=== PATIENT | female | born 1940 | race Caucasian/White ===

== ENCOUNTER → 2017-02-17 | Outpatient (CLI) | payer MEDICARE, OTHER ==
--- NOTE | 2017-02-17 14:56 | CT ---
EXAMINATION TYPE: CT sinus wo con DATE OF EXAM: 02/17/2017 COMPARISON: NONE HISTORY: Patient complains of chronic heavy sinus drainage and headache. CT DLP: 607.[address] of the paranasal sinuses was performed in the axial and coronal planes. Bone and soft tissue settings are submitted. The paranasal sinuses demonstrate normal aeration and development. Mild mucosal thickening at the bases of the maxillary sinuses bilaterally. Minimal superior ethmoid a ir cell mucosal thickening. No air fluid levels identified The osteal meatal units are patent bilaterally. The nasal septum is midline. No bony destructive changes are seen within the field of view. Dental implant changes noted. IMPRESSION: Mild chronic sinusitis.
== END ==
LOC: RADCTMAIN 14:22
PROVIDERS: ATTEND Otolaryngology
DX: J32.9 Chronic sinusitis, unspecified (principal)
CPT/HCPCS: 70486; 87070

== ENCOUNTER → 2017-09-04 | Outpatient (CLI) | payer MEDICARE, OTHER ==
[2017-09-04 12:26] LABS: Basophils % (A) 0 %; Eosinophils # (A) 0.2 k/uL (0-0.7); Eosinophils % (A) 2 %; HCT 42.9 % (34.0-46.0); HGB 14.2 gm/dL (11.4-16.0); Lymphocytes # (A) 2.5 k/uL (1.0-4.8); Lymphocytes % (A) 37 %; MCH 31.5 pg (25.0-35.0); MCHC 33.1 g/dL (31.0-37.0); MCV 95.1 fL (80.0-100.0); Mean Platelet Volume 7.9; Monocytes # (A) 0.4 k/uL (0-1.0); Monocytes % (A) 5 %; Neutrophils # (A) 3.7 k/uL (1.3-7.7); Neutrophils % (A) 54 %; Platelet Count 147 k/uL (150-450); RBC 4.51 m/uL (3.80-5.40); RDW 13.7 % (11.5-15.5); WBC 6.9 k/uL (3.8-10.6)
[2017-09-04 12:44] LABS: Albumin 4.2 g/dL (3.5-5.0); Calcium 9.7 mg/dL (8.4-10.2); Potassium 4.3 mmol/L (3.5-5.1); Total Protein 6.5 g/dL (6.3-8.2)
== END | disposition home or self-care (01) ==
LOC: LABWHC1 11:57
PROVIDERS: ATTEND Family Medicine
DX: E78.2 Mixed hyperlipidemia (principal); I10 Essential (primary) hypertension; F33.0 Major depressive disorder, recurrent, mild
CPT/HCPCS: 36415; 80053; 80061; 82306; 84443; 85025

== ENCOUNTER → 2017-10-17 | Outpatient (CLI) | payer MEDICARE, OTHER ==
--- NOTE | 2017-10-19 20:46 | BD ---
EXAMINATION TYPE: Axial Bone Density DATE OF EXAM: 10/17/2017 COMPARISON: NONE CLINICAL HISTORY: Height: 5 FT 2 1/4 IN Weight: 118 FRAX RISK QUESTIONS: History of Fracture in Adulthood: YES Secondary Osteoporosis: 3. Menopause before 45: AGE 45 Rheumatoid Arthritis: YES Current Tobacco Use: YES RISK FACTORS HISTORY OF: Surgery to Spine/Hip(right/left)/Wrist (right/left): LT WRIST When: FOUR YEARS AGO Family History of Osteoporosis: YES Active: YES Postmenopausal woman: AGE 45 Lost more than 2 inches in height since high school: YES MEDICATIONS: Additional Medications: LOSARTAN, DILTIAZEM, FOLIC ACID, ATORVASTATIN,CALCIUM Additional History: EXAM MEASUREMENTS: Bone mineral densitometry was performed using the [employer] System. Bone mineral density as measured about the Lumbar spine is: ----- L1-L4(G/cm2): 0.959 T Score Values are as follows: ----- L2: -1.2 ----- L3: -1.9 ----- L4: -2.0 ----- L1-L4: -1.8 BASELINE Bone mineral density about the R hip (g/cm2): 0.810 Bone mineral density about the L hip (g/cm2): 0.794 T Score values are as follows: -----R Neck: -1.6 -----L Neck: -1.8 -----R Total: -1.1 -----L Total: -1.3 BASELINE IMPRESSION: Osteopenia (T Score between -2.5 and -1) overall in low back and both hips.. There is slightly increased risk of fracture and the patient may be considered for treatment. Re-Screen 2-5 years. NOTE: T-SCORE=SD OF THE YOUNG ADULT MEAN.
--- NOTE | 2017-10-20 11:55 | MM ---
Reason for exam: screening (asymptomatic). Last mammogram was performed 3 years and 1 month ago. History: Patient is postmenopausal. Benign excisional biopsy of the left breast, 1960. Physical Findings: A clinical breast exam by your physician is recommended on an annual basis and results should be correlated with mammographic findings. MG 3D Screening Mammo W/Cad Bilateral CC and MLO view(s) were taken. Prior study comparison: September 05, 2014, mammogram. The breast tissue is heterogeneously dense. This may lower the sensitivity of mammography. Stable benign calcifications. There is no discrete abnormality. No significant changes when compared with prior studies. ASSESSMENT: Benign, BI-RAD 2 RECOMMENDATION: Routine screening mammogram of both breasts in 1 year.
== END | disposition home or self-care (01) ==
LOC: RADMAMWWP 13:44
PROVIDERS: ATTEND Family Medicine
DX: Z12.31 Encounter for screening mammogram for malignant neoplasm of breast (principal); Z13.820 Encounter for screening for osteoporosis; M85.852 Other specified disorders of bone density and structure, left thigh; M85.851 Other specified disorders of bone density and structure, right thigh; M85.88 Other specified disorders of bone density and structure, other site
CPT/HCPCS: 77063; 77067; 77080

== ENCOUNTER → 2017-11-26 | Outpatient (CLI) | payer MEDICARE, OTHER ==
[2017-11-26 15:32] LABS: Anion Gap 11 mmol/L; Blood Urea Nitrogen 14 mg/dL (7-17); Calcium 9.5 mg/dL (8.4-10.2); Carbon Dioxide 25 mmol/L (22-30); Chloride 103 mmol/L (98-107); Glucose 110 mg/dL (74-99); Potassium 4.2 mmol/L (3.5-5.1); Sodium 139 mmol/L (137-145)
== END | disposition home or self-care (01) ==
LOC: LABWHC1 14:19
PROVIDERS: ATTEND Family Medicine
DX: E78.5 Hyperlipidemia, unspecified (principal); E55.9 Vitamin D deficiency, unspecified; I10 Essential (primary) hypertension; M85.80 Other specified disorders of bone density and structure, unspecified site; Z79.899 Other long term (current) drug therapy
CPT/HCPCS: 36415; 80048; 82306

== ENCOUNTER 2018-07-17 17:12 | Emergency (ER) | payer MEDICARE, OTHER ==
[2018-07-17 17:20] VITALS: TEMP 97.6
[2018-07-17] MEDS ORDERED: SODIUM CHLORIDE 0.9% 1,000 ML IV STA (17:21)
--- NOTE | 2018-07-17 17:27 | ED ---
Dizziness HPI - General Chief Complaint: Dizziness Stated Complaint: Dizziness Time Seen by Provider: 07/17/18 17:21 Source: patient, RN notes reviewed, old records reviewed Mode of arrival: wheelchair Limitations: no limitations - History of Present Illness Initial Comments: This is a 78-year-old female the ER for evaluation. Patient does say for evaluation a feeling cold be dizziness. Patient had a dizzy episode on the bank prior to arrival. Symptoms did resolve spontaneously patient was able to drive home, patient's daughter then picked patient's mother brought the ER for evaluation. She has had multiple episodes of dizziness in the last year off similar events with the room spinning. Patient has history of chronic sinusitis and chronic ear infections. No known prior history of stroke. Patient does have high cholesterol high blood pressure. Denies current headache and symptoms are currently resolved MD Complaint: dizziness -: hour(s) Timing: gradual onset, now resolved Description: "room spinning", off-balance History of Same: Yes History of Trauma: No Severity: mild Improves With: remaining still Worsens With: movement Associated Symptoms: denies other symptoms - Related Data Home Medications Medication Instructions Recorded Confirmed Aspirin 81 mg PO DAILY 04/25/15 07/17/18 Atorvastatin Calcium [Lipitor] 10 mg PO HS 04/25/15 07/17/18 Calcium Carbonate [Calcium] 400 mg PO HS 04/25/15 07/17/18 Cholecalciferol [Vitamin D3] 1,000 unit PO HS 04/25/15 07/17/18 Cyanocobalamin [Vitamin B-12] 1,000 mg PO DAILY 04/25/15 07/17/18 Diltiazem Oral [Cardizem Oral] 120 mg PO HS 04/25/15 07/17/18 Folic Acid 1 mg PO DAILY 04/25/15 07/17/18 Losartan Potassium [Cozaar] 50 mg PO DAILY 04/25/15 07/17/18 Multivit-Min/FA/Lycopen/Lutein 1 tab PO DAILY 04/25/15 07/17/18 [Centrum Silver Tablet] Bifidobacterium Infantis [Align] 4 mg PO DAILY 02/12/16 07/17/18 Ubidecarenone [Co Q-10] 100 mg PO DAILY 02/12/16 07/17/18 Krill Oil 500 mg PO DAILY 03/01/19 03/01/19 Allergies Allergy/AdvReac Type Severity Reaction Status Date / Time codeine Allergy Nausea & Verified 07/17/18 18:47 Vomiting oxytocin [From Pitocin] Allergy Hallucinati Verified 07/17/18 18:47 ons pineapple Allergy Anaphylaxis Verified 07/17/18 18:47 scopolamine Allergy Nausea & Verified 07/17/18 18:47 Vomiting venom-honey bee Allergy Rash/Hives Verified 07/17/18 18:47 [bee venom (honey bee)] Review of Systems ROS Statement: Those systems with pertinent positive or pertinent negative responses have been documented in the HPI. ROS Other: All systems not noted in ROS Statement are negative. Past Medical History Past Medical History: Coronary Artery Disease (CAD), Eye Disorder, Hyperlipidemia, Hypertension, Osteoarthritis (OA), Skin Disorder Additional Past Medical History / Comment(s): hx migraines, irregular heartbeat , hx ulcer, diverticulosis, gets hives on pressure spots all over body, herniated disk History of Any Multi-Drug Resistant Organisms: None Reported Past Surgical History: Breast Surgery, Cholecystectomy, Orthopedic Surgery, Tubal Ligation Additional Past Surgical History / Comment(s): left breast biopsy, left cataract , left wrist surgery, D&C's, Past Anesthesia/Blood Transfusion Reactions: Previous Problems w/ Anesthesia Additional Past Anesthesia/Blood Transfusion Reaction / Comment(s): "one time couldn't wake up" -dioes not take much anesthesia Past Psychological History: No Psychological Hx Reported Smoking Status: Current every day smoker Past Alcohol Use History: Rare Past Drug Use History: None Reported - Past Family History Mother Family Medical History: No Reported History General Exam Limitations: no limitations General appearance: alert, in no apparent distress Head exam: Present: atraumatic, normocephalic, normal inspection Eye exam: Present: normal appearance, PERRL, EOMI. Absent: scleral icterus, conjunctival injection, nystagmus, periorbital swelling ENT exam: Present: normal exam, mucous membranes moist Neck exam: Present: normal inspection. Absent: tenderness, meningismus, lymphadenopathy Respiratory exam: Present: normal lung sounds bilaterally. Absent: respiratory distress, wheezes, rales, rhonchi, stridor Cardiovascular Exam: Present: regular rate, normal rhythm, normal heart sounds. Absent: systolic murmur, diastolic murmur, rubs, gallop, clicks GI/Abdominal exam: Present: soft, normal bowel sounds. Absent: distended, tenderness, guarding, rebound, rigid Extremities exam: Present: normal inspection, full ROM, normal capillary refill. Absent: tenderness, pedal edema, joint swelling, calf tenderness Back exam: Present: normal inspection Neurological exam: Present: alert, oriented X3, CN II-XII intact Psychiatric exam: Present: normal affect, normal mood Skin exam: Present: warm, dry, intact, normal color. Absent: rash Course Vital Signs 07/17/18 17:13 Temperature 97.6 F Pulse Rate 77 Respiratory 18 Rate Blood Pressure 148/82 O2 Sat by Pulse 97 Oximetry - Reevaluation(s) Reevaluation #1: 07/17/18 19:15 Medical record reviewed Reevaluation #2: 07/17/18 19:15 Patient is relatively asymptomatic currently. Discussion at length regarding CVA versus TIA versus in her ear cause. Peripheral. Patient will follow-up with primary care doctor. Medical Decision Making - Medical Decision Making 78 female the ER for evaluation of vertiginous symptoms, no signs No evidence of central cause, patient is symptom-free currently not ataxic and able to ambulate. Patient can be discharged - Lab Data Result diagrams: 07/17/18 17:40 07/17/18 17:40 Lab Results 07/17/18 07/17/18 07/17/18 Range/Units 17:40 17:40 17:40 WBC 7.1 (3.8-10.6) k/uL RBC 4.23 (3.80-5.40) m/uL Hgb 13.8 (11.4-16.0) gm/dL Hct 41.1 (34.0-46.0) % MCV 97.1 (80.0-100.0) fL MCH 32.5 (25.0-35.0) pg MCHC 33.5 (31.0-37.0) g/dL RDW 13.9 (11.5-15.5) % Plt Count 145 L (150-450) k/uL Neutrophils % 61 % Lymphocytes % 29 % Monocytes % 5 % Eosinophils % 2 % Basophils % 0 % Neutrophils # 4.4 (1.3-7.7) k/uL Lymphocytes # 2.1 (1.0-4.8) k/uL Monocytes # 0.4 (0-1.0) k/uL Eosinophils # 0.1 (0-0.7) k/uL Basophils # 0.0 (0-0.2) k/uL PT 9.5 (9.0-12.0) sec INR 0.9 (<1.2) APTT 24.3 (22.0-30.0) sec Sodium 138 (137-145) mmol/L Potassium 4.5 (3.5-5.1) mmol/L Chloride 105 (98-107) mmol/L Carbon Dioxide 26 (22-30) mmol/L Anion Gap 7 mmol/L BUN 15 (7-17) mg/dL Creatinine 0.79 (0.52-1.04) mg/dL Est GFR (CKD-EPI)AfAm 84 (>60 ml/min/1.73 sqM) Est GFR (CKD-EPI)NonAf 73 (>60 ml/min/1.73 sqM) Glucose 86 (74-99) mg/dL Calcium 9.8 (8.4-10.2) mg/dL Phosphorus 3.5 (2.5-4.5) mg/dL Magnesium 2.1 (1.6-2.3) mg/dL Total Bilirubin 0.7 (0.2-1.3) mg/dL AST 41 H (14-36) U/L ALT 36 (9-52) U/L Alkaline Phosphatase 90 (38-126) U/L Troponin I (0.000-0.034) ng/mL Total Protein 6.8 (6.3-8.2) g/dL Albumin 4.2 (3.5-5.0) g/dL TSH 1.400 (0.465-4.680) mIU/L Urine Color Urine Appearance (Clear) Urine pH (5.0-8.0) Ur Specific Herrin (1.001-1.035) Urine Protein (Negative) Urine Glucose (UA) (Negative) Urine Ketones (Negative) Urine Blood (Negative) Urine Nitrite (Negative) Urine Bilirubin (Negative) Urine Urobilinogen (<2.0) mg/dL Ur Leukocyte Esterase (Negative) Urine RBC (0-5) /hpf Urine WBC (0-5) /hpf Amorphous Sediment (None) /hpf 07/17/18 07/17/18 Range/Units 17:40 17:40 WBC (3.8-10.6) k/uL RBC (3.80-5.40) m/uL Hgb (11.4-16.0) gm/dL Hct (34.0-46.0) % MCV (80.0-100.0) fL MCH (25.0-35.0) pg MCHC (31.0-37.0) g/dL RDW (11.5-15.5) % Plt Count (150-450) k/uL Neutrophils % % Lymphocytes % % Monocytes % % Eosinophils % % Basophils % % Neutrophils # (1.3-7.7) k/uL Lymphocytes # (1.0-4.8) k/uL Monocytes # (0-1.0) k/uL Eosinophils # (0-0.7) k/uL Basophils # (0-0.2) k/uL PT (9.0-12.0) sec INR (<1.2) APTT (22.0-30.0) sec Sodium (137-145) mmol/L Potassium (3.5-5.1) mmol/L Chloride (98-107) mmol/L Carbon Dioxide (22-30) mmol/L Anion Gap mmol/L BUN (7-17) mg/dL Creatinine (0.52-1.04) mg/dL Est GFR (CKD-EPI)AfAm (>60 ml/min/1.73 sqM) Est GFR (CKD-EPI)NonAf (>60 ml/min/1.73 sqM) Glucose (74-99) mg/dL Calcium (8.4-10.2) mg/dL Phosphorus (2.5-4.5) mg/dL Magnesium (1.6-2.3) mg/dL Total Bilirubin (0.2-1.3) mg/dL AST (14-36) U/L ALT (9-52) U/L Alkaline Phosphatase (38-126) U/L Troponin I <0.012 (0.000-0.034) ng/mL Total Protein (6.3-8.2) g/dL Albumin (3.5-5.0) g/dL TSH (0.465-4.680) mIU/L Urine Color Colorless Urine Appearance Clear (Clear) Urine pH 7.0 (5.0-8.0) Ur Specific Herrin 1.002 (1.001-1.035) Urine Protein Negative (Negative) Urine Glucose (UA) Negative (Negative) Urine Ketones Negative (Negative) Urine Blood Negative (Negative) Urine Nitrite Negative (Negative) Urine Bilirubin Negative (Negative) Urine Urobilinogen <2.0 (<2.0) mg/dL Ur Leukocyte Esterase Trace H (Negative) Urine RBC <1 (0-5) /hpf Urine WBC 5 (0-5) /hpf Amorphous Sediment Rare H (None) /hpf - Radiology Data Radiology results: report reviewed (CT brain is negative for acute disease), image reviewed Disposition Clinical Impression: Benign paroxysmal positional vertigo Disposition: HOME SELF-CARE Condition: Good Instructions (If sedation given, give patient instructions): Vertigo (ED), Benign Paroxysmal Positional Vertigo (ED) Is patient prescribed a controlled substance at d/c from ED?: No Referrals: Armando Holman MD [Primary Care Provider] - 1-2 days
--- NOTE | 2018-07-17 18:24 | CT ---
EXAMINATION TYPE: CT brain wo con DATE OF EXAM: 07/17/2018 COMPARISON: None HISTORY: Episodes of dizziness x [address] DLP: 1095.4 mGycm Automated exposure control for dose reduction was used. FINDINGS: There is cerebral cortical atrophy. There is no mass effect nor midline shift. There is no sign of in tracranial hemorrhage. There is hypodensity in the cortex left cerebral hemisphere consistent with ol d cortical infarct. Calvarium is intact. 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 CEREBRAL ATROPHY. NO ACUTE INTRACRANIAL ABNORMALITY .
[2018-07-17 18:37] LABS: Amorphous Sediment,Urine Rare /hpf; Appearance,Urine Clear (Clear); Bilirubin,Urine Negative (Negative); Blood,Urine Negative (Negative); Color,Urine Colorless; Glucose,Urine (UA) Negative (Negative); Ketones,Urine Negative (Negative); Leukocyte Esterase,Urine Trace (Negative); Nitrite,Urine Negative (Negative); Protein,Urine Negative (Negative); RBC,Urine <1 /hpf (0-5); Specific Gravity,Urine 1.002 (1.001-1.035); Urobilinogen,Urine <2.0 mg/dL (<2.0); WBC,Urine 5 /hpf (0-5)
[2018-07-17 18:42] LABS: Albumin 4.2 g/dL (3.5-5.0); Calcium 9.8 mg/dL (8.4-10.2); Magnesium 2.1 mg/dL (1.6-2.3); Phosphorus 3.5 mg/dL (2.5-4.5); Potassium 4.5 mmol/L (3.5-5.1); Total Bilirubin 0.7 mg/dL (0.2-1.3); Total Protein 6.8 g/dL (6.3-8.2)
[2018-07-17 18:43] LABS: Basophils % (A) 0 %; Eosinophils # (A) 0.1 k/uL (0-0.7); Eosinophils % (A) 2 %; HCT 41.1 % (34.0-46.0); HGB 13.8 gm/dL (11.4-16.0); Lymphocytes # (A) 2.1 k/uL (1.0-4.8); Lymphocytes % (A) 29 %; MCH 32.5 pg (25.0-35.0); MCHC 33.5 g/dL (31.0-37.0); MCV 97.1 fL (80.0-100.0); Mean Platelet Volume 8.2; Monocytes # (A) 0.4 k/uL (0-1.0); Monocytes % (A) 5 %; Neutrophils # (A) 4.4 k/uL (1.3-7.7); Neutrophils % (A) 61 %; Platelet Count 145 k/uL (150-450); RBC 4.23 m/uL (3.80-5.40); RDW 13.9 % (11.5-15.5); WBC 7.1 k/uL (3.8-10.6)
[2018-07-17 18:48] LABS: INR 0.9 (<1.2); Partial Thromboplastin Time 24.3 sec (22.0-30.0); Prothrombin Time 9.5 sec (9.0-12.0)
[2018-07-17 20:19] VITALS: BP 129/66; PULSE 66; RESP 19
== END 2018-07-17 20:12 | disposition home or self-care (01) ==
LOC: EC 17:12
DX: H81.10 Benign paroxysmal vertigo, unspecified ear (principal); E78.00 Pure hypercholesterolemia, unspecified; E78.5 Hyperlipidemia, unspecified; I25.10 Atherosclerotic heart disease of native coronary artery without angina pectoris; I10 Essential (primary) hypertension; M19.90 Unspecified osteoarthritis, unspecified site; F17.200 Nicotine dependence, unspecified, uncomplicated; Z88.5 Allergy status to narcotic agent; Z88.8 Allergy status to other drugs, medicaments and biological substances; Z91.018 Allergy to other foods; Z91.030 Bee allergy status; Z79.82 Long term (current) use of aspirin; Z79.899 Other long term (current) drug therapy; Z86.79 Personal history of other diseases of the circulatory system; Z87.19 Personal history of other diseases of the digestive system; Z86.69 Personal history of other diseases of the nervous system and sense organs
CPT/HCPCS: 36415; 70450; 80053; 81001; 83735; 84100; 84443; 84484; 85025; 85610; 85730; 87086; 93005; 96360; 96361; 99285

== ENCOUNTER → 2018-09-12 | Outpatient (CLI) | payer MEDICARE, OTHER ==
[2018-09-12 17:03] LABS: Albumin 4.5 g/dL (3.80-4.90); Albumin/Globulin Ratio 2.25 (1.60-3.17); Anion Gap 6.7 mmol/L (4.00-12.00); Calcium 9.7 mg/dL (8.7-10.3); Carbon Dioxide 28.3 mmol/L (21.6-31.8); Potassium 4.4 mmol/L (3.5-5.5); Total Protein 6.5 g/dL (6.2-8.2)
== END | disposition home or self-care (01) ==
LOC: LABWHC1 09:15
PROVIDERS: ATTEND Family Medicine
DX: E78.5 Hyperlipidemia, unspecified (principal); I10 Essential (primary) hypertension
CPT/HCPCS: 36415; 80053; 80061

== ENCOUNTER → 2018-11-16 | Outpatient (CLI) | payer MEDICARE, OTHER ==
--- NOTE | 2018-11-16 19:01 | US ---
EXAMINATION TYPE: US carotid duplex BILAT DATE OF EXAM: 11/16/2018 COMPARISON: NONE CLINICAL HISTORY: R55 SYNCOPA. dizziness, no HTN, no hx of TIA EXAM MEASUREMENTS: RIGHT: Peak Systolic Velocity (PSV) cm/sec ----- Right CCA: 51.0 ----- Right ICA: 93.2 ----- Right ECA: 73.4 ICA/CCA ratio: 1.8 RIGHT: End Diastole cm/sec ----- Right CCA: 13.3 ----- Right ICA: 29.3 ----- Right ECA: 9.5 LEFT: Peak Systolic Velocity (PSV) cm/sec ----- Left CCA: 55.5 ----- Left ICA: 64.3 ----- Left ECA: 64.3 ICA/CCA ratio: 1.2 LEFT: End Diastole cm/sec ----- Left CCA: 18.9 ----- Left ICA: 25.0 ----- Left ECA: 7.5 VERTEBRALS (direction of flow): Right Vertebral: Antegrade Left Vertebral: Antegrade Rhythm: Normal No elevated velocities or significant stenosis. No wall thickening. Plaque seen in bilateral bulbs. IMPRESSION: 1. Atherosclerotic plaque with no significant hemodynamic stenosis as visualized. Criteria for Assigning % of Stenosis / Diameter reduction (Estimation based on the indirect measurements of the internal carotid artery velocities (ICA PSV). 1. Normal (no stenosis)=ICA PSV < 125 cm/s: ratio < 2.0: ICA EDV<40 cm/s. 2. Less than 50% stenosis=ICA PSV < 125 cm/s: ratio < 2.0: ICA EDV<40 cm/s. 3. 50 to 69% stenosis=ICA PSV of 125 to 230 cm/s: ration 2.0 ? 4.0: ICA EDV 40-100 cm/s. 4. Greater than 70% stenosis to near occlusion= ICA PSV > 230 cm/s: ratio > 4.0: ICA EDV > 100 cm/s. 5. Near occlusion= ICA PSV velocities may be low or undetectable: variable ratio and ICA EDV. 6. Total occlusion=unable to detect flow.
== END | disposition home or self-care (01) ==
LOC: RADUSWWP 15:28
PROVIDERS: ATTEND Family Medicine
DX: I77.89 Other specified disorders of arteries and arterioles (principal); R55 Syncope and collapse
CPT/HCPCS: 93880

== ENCOUNTER → 2018-12-01 | Outpatient (CLI) | payer MEDICARE, OTHER ==
--- NOTE | 2018-12-01 16:17 | US ---
EXAMINATION TYPE: US kidneys/renal and bladder DATE OF EXAM: 12/01/2018 COMPARISON: NONE CLINICAL HISTORY: N28.1 RENAL CYST. Lt renal cyst EXAM MEASUREMENTS: Right Kidney: 9.9 x 3.9 x 4.2cm Left Kidney: 10.1 x 4.8 x 4.6cm Right Kidney: no evidence of hydronephrosis Left Kidney: cystic area = 2.4 x 2.5 x 2.6cm shows questionable thickened wall although there is incr eased through transmission. An adjacent area of decreased echogenicity is present towards the renal p karla which may be due to local mass effect. Bladder: appears wnl Bilateral Jets seen: yes There is no evidence for hydronephrosis at this point in time. No nephrolithiasis is seen. The urin armond bladder is anechoic. Bilateral ureteral jets are seen. Cortical medullary differentiation is maintained. IMPRESSION: Lower pole left kidney cystic focus is not clearly a simple cyst, follow-up suggested
--- NOTE | 2018-12-02 12:02 | ECHOF ---
Referral Reason:R55 MEASUREMENTS -------- HEIGHT: 160.0 cm WEIGHT: 50.8 kg BP: RVIDd: 2.1 cm (< 3.3) IVSd: 0.9 cm (0.6 - 1.1) LVIDd: 3.5 cm (3.9 - 5.3) LVPWd: 1.1 cm (0.6 - 1.1) IVSs: 1.6 cm LVIDs: 2.2 cm LVPWs: 1.1 cm LAESV Index (A-L): 19.27 ml/m Ao Diam: 3.0 cm (2.0 - 3.7) AV Cusp: 1.4 cm (1.5 - 2.6) LA Diam: 2.4 cm (2.7 - 3.8) MV EXCURSION: 11.063 mm (> 18.000) MV EF SLOPE: 69 mm/s (70 - 150) EPSS: 0.3 cm MV E Anish: 1.02 m/s MV DecT: 212 ms MV A Anish: 0.89 m/s MV E/A Ratio: 1.14 RAP: 5.00 mmHg RVSP: 29.66 mmHg FINDINGS -------- Sinus rhythm. This was a technically good study. The left ventricular size is normal. Left ventricular wall thickness is normal. Overall left vent ricular systolic function is normal with, an EF between 55 - 60 %. The diastolic filling pattern is normal for the age of the patient 14.74. The right ventricle is normal in size. The left atrial size is normal. Normal LA size by volume 22+/-6 ml/m2. The right atrial size is normal. Interatrial and interventricular septum intact. Aortic valve is trileaflet and is mildly thickened. The mitral valve is normal. The mitral valve leaflets are mildly thickened. There is trace mitral regurgitation. [id number] tricuspid regurgitation present. Right ventricular systolic pressure is normal at < 35 mmHg. There is no pulmonic regurgitation present. The aortic root size is normal. Normal inferior vena cava with normal inspiratory collapse consistent with estimated right atrial pre ssure of 5 mmHg. The flow patterns, measured by Doppler, appear normal. CONCLUSIONS -------- 1. Sinus rhythm. 2. This was a technically good study. 3. The left ventricular size is normal. 4. Left ventricular wall thickness is normal. 5. Overall left ventricular systolic function is normal with, an EF between 55 - 60 %. 6. The diastolic filling pattern is normal for the age of the patient 14.74 7. The right ventricle is normal in size. 8. The left atrial size is normal. 9. Normal LA size by volume 22+/-6 ml/m2. 10. The right atrial size is normal. 11. Interatrial and interventricular septum intact. 12. Aortic valve is trileaflet and is mildly thickened. 13. The mitral valve is normal. 14. The mitral valve leaflets are mildly thickened. 15. There is trace mitral regurgitation. 16. [id number] tricuspid regurgitation present. 17. Right ventricular systolic pressure is normal at < 35 mmHg. 18. There is no pulmonic regurgitation present. 19. The aortic root size is normal. 20. Normal inferior vena cava with normal inspiratory collapse consistent with estimated right atrial pressure of 5 mmHg. 21. The flow patterns, measured by Doppler, appear normal. [employer] OPERATOR: Taty Bryant RDCS
== END | disposition home or self-care (01) ==
LOC: RADUSWWP 12:44
PROVIDERS: ATTEND Family Medicine
DX: N28.1 Cyst of kidney, acquired (principal); I08.3 Combined rheumatic disorders of mitral, aortic and tricuspid valves
CPT/HCPCS: 76770; 93306

== ENCOUNTER 2019-06-16 17:44 | Observation (INO) | payer MEDICARE, BC ==
--- NOTE | 2019-06-16 18:59 | ED ---
Chest Pain HPI - General Chief Complaint: Chest Pain Stated Complaint: chest pain Time Seen by Provider: 06/16/19 18:19 Source: patient Mode of arrival: wheelchair Limitations: no limitations - History of Present Illness Initial Comments: The patient is a 79-year-old female past history of coronary artery disease, hypertension and hyperlipidemia presents the emergency department with reported chest pain. Her daughter is at bedside and helps provide history. The patient states that she began having chest pain earlier this morning. Described as a l eft-sided chest pain with radiation into her left neck. She denies a previous history of cardiac disease. No history of cardiac arrhythmias. States the pain is intermittent. No current chest pain at this time. States that it did make her nauseated and diaphoretic. No ripping or tearing sensation to her back. Denies any numbness, weakness or tingling in her upper extremities. No fevers or chills. She does admit to mild shortness of breath. No history of DVT or PE. No family history of blood clotting disorders. Denies any pedal edema. Denies any calf pain or swelling. She has seen a underwater hunter trapper previously however she was unsure what it was for. She has had stress testing however last was greater than 5 years ago. She denies any fevers or chills. No cough or hemoptysis. No sick contacts. There are no other alleviating, precipitating or mottling factors - Related Data Home Medications Medication Instructions Recorded Confirmed Aspirin 81 mg PO DAILY 04/25/15 06/16/19 Atorvastatin Calcium [Lipitor] 10 mg PO HS 04/25/15 06/16/19 Calcium Carbonate [Calcium] 400 mg PO HS 04/25/15 06/16/19 Cholecalciferol [Vitamin D3 (25 1,000 unit PO HS 04/25/15 06/16/19 Mcg = 1000 Iu)] Cyanocobalamin [Vitamin B-12] 1,000 mg PO DAILY 04/25/15 06/16/19 Diltiazem Oral [Cardizem*] 120 mg PO HS 04/25/15 06/16/19 Folic Acid 1 mg PO DAILY 04/25/15 06/16/19 Losartan Potassium [Cozaar] 50 mg PO DAILY 04/25/15 06/16/19 Multivit-Min/FA/Lycopen/Lutein 1 tab PO DAILY 04/25/15 06/16/19 [Centrum Silver Tablet] Bifidobacterium Infantis [Align] 4 mg PO DAILY 02/12/16 06/16/19 Ubidecarenone [Co Q-10] 100 mg PO DAILY 02/12/16 06/16/19 Krill Oil 500 mg PO DAILY 07/17/18 06/16/19 Allergies Allergy/AdvReac Type Severity Reaction Status Date / Time codeine Allergy Nausea & Verified 06/16/19 20:43 Vomiting oxytocin [From Pitocin] Allergy Hallucinati Verified 06/16/19 20:43 ons pineapple Allergy Anaphylaxis Verified 06/16/19 20:43 scopolamine Allergy Nausea & Verified 06/16/19 20:43 Vomiting venom-honey bee Allergy Rash/Hives Verified 06/16/19 20:43 [bee venom (honey bee)] Review of Systems ROS Statement: Those systems with pertinent positive or pertinent negative responses have been documented in the HPI. ROS Other: All systems not noted in ROS Statement are negative. EKG Findings - EKG Comments: EKG Findings:: EKG demonstrates normal sinus rhythm with ventricular rate of 66. PA interval 146. QRS 92. QTC of 450. No acute ST segment elevations or depressions concerning for ischemic changes. Past Medical History Past Medical History: Coronary Artery Disease (CAD), Eye Disorder, Hyperlipidemia, Hypertension, Osteoarthritis (OA), Skin Disorder Additional Past Medical History / Comment(s): hx migraines, irregular heartbeat, hx ulcer, diverticulosis, gets hives on pressure spots all over body, herniated disk History of Any Multi-Drug Resistant Organisms: None Reported Past Surgical History: Breast Surgery, Cholecystectomy, Orthopedic Surgery, Tubal Ligation Additional Past Surgical History / Comment(s): left breast biopsy, left cataract, left wrist surgery, D&C's, Past Anesthesia/Blood Transfusion Reactions: Previous Problems w/ Anesthesia Additional Past Anesthesia/Blood Transfusion Reaction / Comment(s): "one time couldn't wake up" -dioes not take much anesthesia Past Psychological History: No Psychological Hx Reported Smoking Status: Current every day smoker Past Alcohol Use History: Rare Past Drug Use History: None Reported - Past Family History Mother Family Medical History: No Reported History General Exam Limitations: no limitations General appearance: alert, in no apparent distress Head exam: Present: atraumatic, normocephalic, normal inspection Eye exam: Present: normal appearance, PERRL, EOMI. Absent: scleral icterus, conjunctival injection, periorbital swelling ENT exam: Present: normal exam, mucous membranes moist Neck exam: Present: normal inspection. Absent: tenderness, meningismus, lymphadenopathy Respiratory exam: Present: normal lung sounds bilaterally. Absent: respiratory distress, wheezes, rales, rhonchi, stridor Cardiovascular Exam: Present: regular rate, normal rhythm, normal heart sounds. Absent: systolic murmur, diastolic murmur, rubs, gallop, clicks GI/Abdominal exam: Present: soft, normal bowel sounds. Absent: distended, tenderness, guarding, rebound, rigid Extremities exam: Present: normal inspection, full ROM, normal capillary refill. Absent: tenderness, pedal edema, joint swelling, calf tenderness Back exam: Present: normal inspection Neurological exam: Present: alert, oriented X3, CN II-XII intact Psychiatric exam: Present: normal affect, normal mood Skin exam: Present: warm, dry, intact, normal color. Absent: rash Course Vital Signs 06/16/19 06/16/19 17:53 18:37 Temperature 97.8 F Pulse Rate 71 Pulse Rate [ 64 Reference Library Assistant ] Respiratory 16 Rate Blood Pressure 136/70 O2 Sat by Pulse 97 Oximetry Chest Pain MDM - MDM Upon arrival the patient was placed into room 7. A thorough history and physical exam was performed. I did recommend laboratory studies and a chest x- ray. A 12-lead EKG demonstrates no acute findings. CBC, CMP studies are unremarkable. The patient does have a negative troponin. Chest x-ray demonstrates COPD findings. The patient does currently smoke. Because of her risk factors I did recommend trending the patient's troponins and having a cardiology evaluation. The patient does agree to this. I called and discussed the case with Dr. Davis who accepted admission for the patient. The patient was then taken to the floor in stable condition Disposition Clinical Impression: Chest pain Disposition: ADMITTED IP TO THIS HOSP Condition: Stable Is patient prescribed a controlled substance at d/c from ED?: No Decision to Admit Reason: Admit from EC Decision Date: 06/16/19 Decision Time: 20:11
--- NOTE | 2019-06-16 19:04 | XR ---
EXAMINATION TYPE: XR chest 2V DATE OF EXAM: 06/16/2019 COMPARISON: NONE HISTORY: Chest pain TECHNIQUE: 2 views FINDINGS: Heart is normal. There is pulmonary hyperinflation and flattening of the diaphragm. There a re no hilar masses. Thoracic aorta is atheromatous. There are chest leads. IMPRESSION: COPD. No acute lung disease. Normal heart.
[2019-06-16 19:14] LABS: Basophils # (A) 0.1 k/uL (0-0.2); Basophils % (A) 1 %; Eosinophils # (A) 0.1 k/uL (0-0.7); Eosinophils % (A) 2 %; HCT 42.5 % (34.0-46.0); HGB 13.8 gm/dL (11.4-16.0); Lymphocytes # (A) 2.7 k/uL (1.0-4.8); Lymphocytes % (A) 38 %; MCH 31.9 pg (25.0-35.0); MCHC 32.5 g/dL (31.0-37.0); MCV 98.2 fL (80.0-100.0); Mean Platelet Volume 8.8; Monocytes # (A) 0.4 k/uL (0-1.0); Monocytes % (A) 5 %; Neutrophils # (A) 3.8 k/uL (1.3-7.7); Neutrophils % (A) 53 %; Platelet Count 163 k/uL (150-450); RBC 4.33 m/uL (3.80-5.40); RDW 13.5 % (11.5-15.5); WBC 7.3 k/uL (3.8-10.6)
[2019-06-16 19:25] LABS: Albumin 4.3 g/dL (3.5-5.0); INR 0.9 (<1.2); Magnesium 2.2 mg/dL (1.6-2.3); Partial Thromboplastin Time 23.9 sec (22.0-30.0); Potassium 4.5 mmol/L (3.5-5.1); Prothrombin Time 9.6 sec (9.0-12.0); Total Bilirubin 0.7 mg/dL (0.2-1.3); Total Protein 7.1 g/dL (6.3-8.2)
[2019-06-16] MEDS ORDERED: NALOXONE 0.4 MG/ML 1 ML VIAL IV PRN (20:11)
[2019-06-16] MEDS ORDERED: ASPIRIN 81 MG PO STA (22:35)
--- NOTE | 2019-06-16 22:37 | P.HPIM ---
History of Present Illness H&P Date: 06/16/19 The patient is a 79-year-old female with a PMH of tobacco abuse, hypertension, coronary artery disease (previously saw deer farmer several years ago but unable to recall details), and hyperlipidemia who presented to the ED with complaints of chest pain. The patient reports that the pain started suddenly this morning at around 10 AM, is on the left side of her chest, sharp and twisting in nature, 10 out of 10, non-radiating, intermittent, with waning and waxing intensity, with no clear alleviating or exacerbated factors. The patient reports that she's never had pain quite like this before in the past. She endorsed some associated nausea though denied any additional symptoms. She denied shortness of breath, nausea, diaphoresis, vomiting, dizziness, headaches. She contacted her daughter who brought her to the ED after she returned from work at around 5 PM. At time of interview, she reports that her pain has improved to a 3 out of 10. The pain is not associated with exertion and does not change or worsen with movement of her arms or her chest wall. She underwent an extensive evaluation in the emergency room with an EKG showing normal sinus rhythm at 66 bpm with a T-wave inversion V1 and no additional ST/T-wave changes noted. A chest x-ray was consistent with COPD. Laboratory evaluation revealed a troponin less than 0.012, AST 44, ALT 23, WBC count 7.3, hemoglobin 13.8, p latelets 163, sodium 136, potassium 4.5, BUN 19, creatinine 0.86, and a glucose of 95. The patient is being admitted to the medicine service for further management of chest pain and cardiology evaluation. Review of Systems Pertinent positives and negatives as discussed in HPI, a complete review of systems was performed and all other systems are negative. Past Medical History Past Medical History: Coronary Artery Disease (CAD), Eye Disorder, Hyperlipidemia, Hypertension, Osteoarthritis (OA), Skin Disorder Additional Past Medical History / Comment(s): hx migraines, irregular heartbeat, hx ulcer, diverticulosis, gets hives on pressure spots all over body, herniated disk History of Any Multi-Drug Resistant Organisms: None Reported Past Surgical History: Breast Surgery, Cholecystectomy, Orthopedic Surgery, Tubal Ligation Additional Past Surgical History / Comment(s): left breast biopsy, left cataract, left wrist surgery, D&C's, Past Anesthesia/Blood Transfusion Reactions: Previous Problems w/ Anesthesia Additional Past Anesthesia/Blood Transfusion Reaction / Comment(s): "one time couldn't wake up" -dioes not take much anesthesia Past Psychological History: No Psychological Hx Reported Smoking Status: Current every day smoker Past Alcohol Use History: Rare Past Drug Use History: None Reported - Past Family History Mother Family Medical History: No Reported History Medications and Allergies Home Medications Medication Instructions Recorded Confirmed Type Aspirin 81 mg PO DAILY 04/25/15 06/16/19 History Atorvastatin Calcium [Lipitor] 10 mg PO HS 04/25/15 06/16/19 History Calcium Carbonate [Calcium] 400 mg PO HS 04/25/15 06/16/19 History Cholecalciferol [Vitamin D3] 1,000 unit PO HS 04/25/15 06/16/19 History Cyanocobalamin [Vitamin B-12] 1,000 mg PO DAILY 04/25/15 06/16/19 History Diltiazem Oral [Cardizem Oral] 120 mg PO HS 04/25/15 06/16/19 History Folic Acid 1 mg PO DAILY 04/25/15 06/16/19 History Losartan Potassium [Cozaar] 50 mg PO DAILY 04/25/15 06/16/19 History Multivit-Min/FA/Lycopen/Lutein 1 tab PO DAILY 04/25/15 06/16/19 History [Centrum Silver Tablet] Bifidobacterium Infantis [Align] 4 mg PO DAILY 02/12/16 06/16/19 History Ubidecarenone [Co Q-10] 100 mg PO DAILY 02/12/16 06/16/19 History Krill Oil 500 mg PO DAILY 07/17/18 06/16/19 History Baclofen [Lioresal] 10 mg PO HS PRN 06/16/19 06/16/19 History Allergies Allergy/AdvReac Type Severity Reaction Status Date / Time codeine Allergy Nausea & Verified 06/16/19 20:43 Vomiting oxytocin [From Pitocin] Allergy Hallucinati Verified 06/16/19 20:43 ons pineapple Allergy Anaphylaxis Verified 06/16/19 20:43 scopolamine Allergy Nausea & Verified 06/16/19 20:43 Vomiting venom-honey bee Allergy Rash/Hives Verified 06/16/19 20:43 [bee venom (honey bee)] Physical Exam Vitals: Vital Signs Temp Pulse Pulse Resp BP Pulse Ox 06/16/19 18:37 64 06/16/19 17:53 97.8 F 71 16 136/70 97 Intake and Output 06/16/19 06/16/19 06/16/19 06:59 14:59 22:59 Other: Weight 52.163 kg General: non toxic, no distress, appears at stated age, normal weight Derm: no unusual rashes/lesions no unusual ecchymoses, warm, dry Head: atraumatic, normocephalic, symmetric Eyes: EOMI, no lid lag, anicteric sclera, pupils equal round reactive to light ENT: Nose and ears atraumatic, no thrush, no pharyngeal erythema Neck: No thyromegaly, no cervical lymphadenopathy, trachea midline, supple Mouth: no lip lesion, mucus membranes moist Cardiovascular: S1S2 reg, no murmur, positive posterior tibial pulse bilateral, no edema, capillary refill less than 2 seconds, no chest wall tenderness on palpation Lungs: CTA bilateral, no rhonchi, no rales , no accessory muscle use Abdominal: soft, nontender to palpation, no guarding, no appreciable organomegaly, normal bowel sounds Ext: no gross muscle atrophy, muscle strength 5 out of 5 in all 4 extremities grossly, no contractures Neuro: CN II-XI grossly intact, light touch intact all 4 extremities, finger to nose within normal limits, Psych: Alert, oriented, appropriate affect Results CBC & Chem 7: 06/16/19 18:22 06/16/19 18:22 Labs: Abnormal Lab Results - Last 24 Hours (Table) 06/16/19 Range/Units 18:22 Sodium 136 L (137-145) mmol/L BUN 19 H (7-17) mg/dL AST 44 H (14-36) U/L Assessment and Plan Plan: Chest pain, r/o ACS -Cardiology evaluation -Cardiac monitoring -Trend troponin -ASA 324 mg once and then c/w home dose Chronic conditions: HTN, HLD -C/w home meds DVT prophylaxis -Heparin Subq The patient is admitted with an anticipated less than 2 midnight stay for evaluation of chest pain. CODE STATUS:Full Code Discussed with: Patient Anticipated discharge date: 1-[address]: Home A total of 35 minutes was spent on the care of this complex patient more than 50% of the time was spent in counseling and care coordination.
[2019-06-17 07:49] VITALS: RESP 18
[2019-06-17] MEDS ORDERED: DOBUTamine DRIP for NUC MED 500 MG in DEXTROSE/WATER 1 250ML.BAG IV ONE (08:26)
[2019-06-17 08:51] LABS: Cholesterol 151 mg/dL (<200); HDL Cholesterol 97 mg/dL (40-60); LDL Cholesterol,Calculated 40 mg/dL (0-99); Triglycerides 71 mg/dL (<150)
[2019-06-17] MEDS ORDERED: ASPIRIN 81 MG PO SCH (09:00)
[2019-06-17] MEDS ORDERED: LOSARTAN 50 MG TAB PO SCH (09:00)
--- NOTE | 2019-06-17 10:36 | P.CRDCN ---
History of Present Illness History of present illness: woke up yesterday with a pinching pain type sensation int he mid-sternal region with radiation to the left neck at the base of the left ear. associated with nausea. HISTORY OF PRESENTING ILLNESS This is a pleasant 79-year-old female past medical history significant for dyslipidemia, hypertension and chronic nicotine dependence. She denies prior history of coronary artery disease and does not follow in the office with a technical document writer. We have been asked to see in consultation for chest pain. She is seen and examined resting comfortably lying flat in bed with daughter at the bedside. She states yesterday morning she woke up in her usual state of health when she started noticing a pinching discomfort type sensation in the midsternal region with radiation to the left neck at the base of the left ear. The symptoms were associated with mild nausea and palpitations described as a fluttering sensation. She denies shortness of breath, dizziness, vomiting or diaphoresis. Her symptoms were intermittent and not associated with activity or exertion. They have subsided since arriving in the emergency department however she states when she first got here initially she was feeling discomfort and palpitations. DIAGNOSTICS EKG reveals sinus mechanism with no acute ST or T wave abnormalities noted. Telemetry tracings unremarkable for an acute arrhythmia. Chest xray no acute cardiopulmonary process with evidence of underlying COPD. Laboratory reviewed, CBC unremarkable, sodium 136, potassium 4.5, creatinine 0.86, magnesium 2.2, cardiac enzymes negative 3, LDL 40. Current cardiac medications include aspirin 81 mg daily, atorvastatin 10 mg daily, diltiazem 120 mg at bedtime and losartan 50 mg daily. Most recent echocardiogram obtained November 2018 reveals preserved LV systolic function with ejection fraction 55-60%, normal diastolic filling pattern and mild to moderate tricuspid regurgitation. REVIEW OF SYSTEMS At the time of my exam: CONSTITUTIONAL: Denies fever or chills. CARDIOVASCULAR: Denies chest pain, shortness of breath, orthopnea, PND or palpitations. RESPIRATORY: Denies cough. GASTROINTESTINAL: Denies abdominal pain, diarrhea, constipation, nausea or vomiting. MUSCULOSKELETAL: Denies myalgias. NEUROLOGIC: Denies numbness, tingling or weakness. ENDOCRINE: Denies fatigue, weight change, polydipsia or polyurina. GENITOURINARY: Denies burning, hematuria or urgency with micturation. HEMATOLOGIC: Denies history of anemia or bleeding. PHYSICAL EXAMINATION Blood pressure 142/84 heart rate 65 afebrile and maintaining oxygen saturation on room air. CONSTITUTIONAL: No apparent distress. HEENT: Head is normocephalic. Pupils are equal, round. Sclerae anicteric. Mucous membranes of the mouth are moist. No JVD. No carotid bruit. CHEST EXAMINATION: Lungs are clear to auscultation. No chest wall tenderness is noted on palpation or with deep breathing. Diminished bilaterally. HEART EXAMINATION: Regular rate and rhythm. S1, S2 heard. Faint systolic ejection murmur at the apex, no gallops or rub. ABDOMEN: Soft, nontender. Positive bowel sounds. EXTREMITIES: 2+ peripheral pulses, no lower extremity edema and no calf tenderness. NEUROLOGIC EXAMINATION: Patient is awake, alert and oriented x3. ASSESSMENT Chest pain, atypical. An acute coronary event has been ruled out. Hypertension Dyslipidemia, well controlled on atorvastatin Chronic back pain Chronic nicotine dependence PLAN An acute coronary event has been ruled out. Obtain 2D echocardiogram and doppler study to assess cardiac structure and function. Perform dobutamine stress echocardiogram to assess for stress induced ischemia. If stress test is normal we will consider outpatient telemetry monitoring for evidence of arrhythmia. Thank you kindly for this consultation. Nurse Practitioner note has been reviewed, I agree with a documented findings and plan of care. Patient was seen and examined. Past Medical History Past Medical History: Coronary Artery Disease (CAD), Eye Disorder, Hyperlipidemia, Hypertension, Osteoarthritis (OA), Skin Disorder Additional Past Medical History / Comment(s): hx migraines, irregular heartbeat, hx ulcer, diverticulosis, gets hives on pressure spots all over body, herniated disk History of Any Multi-Drug Resistant Organisms: None Reported Past Surgical History: Breast Surgery, Cholecystectomy, Orthopedic Surgery, Tubal Ligation Additional Past Surgical History / Comment(s): left breast biopsy, left cataract, left wrist surgery, D&C's, Past Anesthesia/Blood Transfusion Reactions: Previous Problems w/ Anesthesia Additional Past Anesthesia/Blood Transfusion Reaction / Comment(s): "one time couldn't wake up" -dioes not take much anesthesia Past Psychological History: No Psychological Hx Reported Smoking Status: Current every day smoker Past Alcohol Use History: Rare Past Drug Use History: None Reported - Past Family History Mother Family Medical History: No Reported History Medications and Allergies Home Medications Medication Instructions Recorded Confirmed Type Aspirin 81 mg PO DAILY 04/25/15 06/16/19 History Atorvastatin Calcium [Lipitor] 10 mg PO HS 04/25/15 06/16/19 History Calcium Carbonate [Calcium] 400 mg PO HS 04/25/15 06/16/19 History Cholecalciferol [Vitamin D3] 1,000 unit PO HS 04/25/15 06/16/19 History Cyanocobalamin [Vitamin B-12] 1,000 mg PO DAILY 04/25/15 06/16/19 History Diltiazem Oral [Cardizem Oral] 120 mg PO HS 04/25/15 06/16/19 History Folic Acid 1 mg PO DAILY 04/25/15 06/16/19 History Losartan Potassium [Cozaar] 50 mg PO DAILY 04/25/15 06/16/19 History Multivit-Min/FA/Lycopen/Lutein 1 tab PO DAILY 04/25/15 06/16/19 History [Centrum Silver Tablet] Bifidobacterium Infantis [Align] 4 mg PO DAILY 02/12/16 06/16/19 History Ubidecarenone [Co Q-10] 100 mg PO DAILY 02/12/16 06/16/19 History Krill Oil 500 mg PO DAILY 07/17/18 06/16/19 History Baclofen [Lioresal] 10 mg PO HS PRN 06/16/19 06/16/19 History Allergies Allergy/AdvReac Type Severity Reaction Status Date / Time codeine Allergy Nausea & Verified 06/16/19 20:43 Vomiting oxytocin [From Pitocin] Allergy Hallucinati Verified 06/16/19 20:43 ons pineapple Allergy Anaphylaxis Verified 06/16/19 20:43 scopolamine Allergy Nausea & Verified 06/16/19 20:43 Vomiting venom-honey bee Allergy Rash/Hives Verified 06/16/19 20:43 [bee venom (honey bee)] Physical Exam Vitals: Vital Signs Temp Pulse Pulse Pulse Resp BP BP 06/17/19 07:48 97.5 F L 65 18 142/84 06/17/19 03:41 97.8 F 68 15 06/17/19 03:37 59 L 17 06/17/19 00:00 17 06/16/19 23:36 98 F 80 17 06/16/19 20:55 97.7 F 68 17 06/16/19 18:37 64 06/16/19 17:53 97.8 F 71 16 136/70 BP Pulse Ox 06/17/19 07:48 95 06/17/19 03:41 128/70 96 06/17/19 03:37 06/17/19 00:00 06/16/19 23:36 100/61 94 L 06/16/19 20:55 152/73 98 06/16/19 18:37 06/16/19 17:53 97 Intake and Output 06/16/19 06/17/19 06/17/19 22:59 06:59 14:59 Intake Total 480 Balance 480 Intake: Oral 480 Other: # Voids 1 Weight 52.163 kg Results 06/16/19 18:22 06/16/19 18:22 Cardiac Enzymes 06/16/19 06/16/19 06/17/19 Range/Units 18:22 18:22 00:28 AST 44 H (14-36) U/L Troponin I <0.012 <0.012 (0.000-0.034) ng/mL Coagulation 06/16/19 Range/Units 18:22 PT 9.6 (9.0-12.0) sec APTT 23.9 (22.0-30.0) sec CBC 06/16/19 Range/Units 18:22 WBC 7.3 (3.8-10.6) k/uL RBC 4.33 (3.80-5.40) m/uL Hgb 13.8 (11.4-16.0) gm/dL Hct 42.5 (34.0-46.0) % Plt Count 163 (150-450) k/uL Comprehensive Metabolic Panel 06/16/19 Range/Units 18:22 Sodium 136 L (137-145) mmol/L Potassium 4.5 (3.5-5.1) mmol/L Chloride 104 (98-107) mmol/L Carbon Dioxide 27 (22-30) mmol/L BUN 19 H (7-17) mg/dL Creatinine 0.86 (0.52-1.04) mg/dL Glucose 95 (74-99) mg/dL Calcium 10.0 (8.4-10.2) mg/dL AST 44 H (14-36) U/L ALT 23 (4-34) U/L Alkaline Phosphatase 80 (38-126) U/L Total Protein 7.1 (6.3-8.2) g/dL Albumin 4.3 (3.5-5.0) g/dL Current Medications Generic Name Dose Route Start Last Admin Trade Name Freq PRN Reason Stop Dose Admin Aspirin 81 mg 06/17/19 09:00 Aspirin PO DAILY PENDING SALE TO [facility] Atorvastatin Calcium 10 mg 06/17/19 21:00 Lipitor PO HS PENDING SALE TO [facility] Diltiazem HCl 120 mg 06/17/19 21:00 Cardizem Cd PO HS PENDING SALE TO [facility] Losartan Potassium 50 mg 06/17/19 09:00 Cozaar PO DAILY PENDING SALE TO [facility] Naloxone HCl 0.2 mg 06/16/19 20:11 Narcan IV Q2M PRN Opioid Reversal Intake and Output 06/16/19 06/17/19 06/17/19 22:59 06:59 14:59 Intake Total 480 Balance 480 Intake: Oral 480 Other: # Voids 1 Weight 52.163 kg 06/16/19 18:22 06/16/19 18:22
[2019-06-17] MEDS ORDERED: ONDANSETRON 4 MG/2 ML VIAL ONE (11:14)
[2019-06-17 11:50] VITALS: BP 118/74; TEMP 97.2
[2019-06-17 11:56] VITALS: PULSE 68
--- NOTE | 2019-06-17 11:57 | P.STRESS ---
- Stress Test Note Stress Test Results/Findings: Exam Performed: dobutamine stress echo Exam Date: 06/17/19 Reason for Exam: CHEST PAIN Height: 5 ft 4 in Weight: 52.16 kg Protocol: DOBUTAMINE STRESS ECHO Stage: III Duration of Exercise: 6:38 Resting Heart Rate: 65 Resting Blood Pressure: 135/98 Maximum Achieved Heart Rate: 139 Maximum Achieved Blood Pressure: 150/64 85% PMHR: 121 100% PMHR: 142 METS: N/A Technologist Comment: Stress Test Results/Findings: This is a 79-year-old female with history of hypertension, family history of is chemic heart disease and smoking admitted to the hospital with the chest pain. Stress data: Baseline EKG showed sinus rhythm with normal MS interval, QRS duration. Blood pressure at rest is 135/98 with pulse rate of 65. A standard dose of dobutamine was initiated at 10 mics and was titrated to maximum of 30 mics HAV maximum rate of 139 with a blood pressure 132/64. EKGs taken during and after x-ray did not reveal any changes of ischemia. Echo data: Baseline echo images showed normal wall motion and thickening. Exercise echo images with a dobutamine showed augmentation of wall motion and thickening in both low dose and high dose. Final impression: #1. Negative dobutamine stress test #2. Negative dobutamine stress echo
--- NOTE | 2019-06-17 12:40 | ECHOF ---
Referral Reason:cp, nausea, palptiations MEASUREMENTS -------- HEIGHT: 162.6 cm WEIGHT: 52.2 kg BP: 142/84 RVIDd: 3.5 cm (< 3.3) IVSd: 1.4 cm (0.6 - 1.1) LVIDd: 3.0 cm (3.9 - 5.3) LVPWd: 1.5 cm (0.6 - 1.1) IVSs: 1.7 cm LVIDs: 1.9 cm LVPWs: 1.7 cm LAESV Index (A-L): 21.38 ml/m Ao Diam: 3.0 cm (2.0 - 3.7) AV Cusp: 1.6 cm (1.5 - 2.6) MV E Anish: 0.79 m/s MV DecT: 286 ms MV A Anish: 0.98 m/s MV E/A Ratio: 0.80 RAP: 5.00 mmHg RVSP: 49.58 mmHg FINDINGS -------- Sinus rhythm. This was a technically good study. The left ventricular size is normal. There is moderate concentric left ventricular hypertrophy. O verall left ventricular systolic function is normal with, an EF between 55 - 60 %. The diastolic fi lling pattern is normal for the age of the patient 12.57. The right ventricle is mildly enlarged. Normal LA size by volume 22+/-6 ml/m2. The right atrial size is normal. Interatrial and interventricular septum intact. The aortic valve is trileaflet and appears structurally normal. There is mild aortic valve sclerosi s. There is no evidence of aortic regurgitation. There is no evidence of aortic stenosis. Mild mitral annular calcification present. Chur-vo-dvyqxzth tricuspid regurgitation present. There is mild to moderate pulmonary hypertension. The right ventricular systolic pressure, as measured by Doppler, is 49.58mmHg. There is no pulmonic regurgitation present. The aortic root size is normal. Normal inferior vena cava with normal inspiratory collapse consistent with estimated right atrial pre ssure of 5 mmHg. There is no pericardial effusion. CONCLUSIONS -------- 1. Sinus rhythm. 2. This was a technically good study. 3. The left ventricular size is normal. 4. There is moderate concentric left ventricular hypertrophy. 5. Overall left ventricular systolic function is normal with, an EF between 55 - 60 %. 6. The diastolic filling pattern is normal for the age of the patient 12.57 7. The right ventricle is mildly enlarged. 8. Normal LA size by volume 22+/-6 ml/m2. 9. The right atrial size is normal. 10. Interatrial and interventricular septum intact. 11. The aortic valve is trileaflet and appears structurally normal. 12. There is mild aortic valve sclerosis. 13. There is no evidence of aortic regurgitation. 14. There is no evidence of aortic stenosis. 15. Mild mitral annular calcification present. 16. Beux-ug-qrhtwxnf tricuspid regurgitation present. 17. There is mild to moderate pulmonary hypertension. 18. The right ventricular systolic pressure, as measured by Doppler, is 49.58mmHg. 19. There is no pulmonic regurgitation present. 20. The aortic root size is normal. 21. Normal inferior vena cava with normal inspiratory collapse consistent with estimated right atrial pressure of 5 mmHg. 22. There is no pericardial effusion. SUPPLY CHAIN TECHNICIAN: Lorri Christian RDCS
--- NOTE | 2019-06-17 13:45 | P.DS ---
Providers Date of admission: 06/16/19 20:11 Expected date of discharge: 06/17/19 Attending physician: Georgette Davis MD Consults: 06/16/19 20:12 Consult Physician Urgent Consulting Provider: [facility] Consult Reason/Comments: chest pain Do you want consulting provider notified?: Yes Primary care physician: [facility] Course: The patient is a 79-year-old female with a PMH of tobacco abuse, hypertension, coronary artery disease (previously saw business objects developer several years ago but unable to recall details), and hyperlipidemia who presented to the ED with complaints of chest pain. The patient reports that the pain started suddenly this morning at around 10 AM, is on the left side of her chest, sharp and twisting in nature, 10 out of 10, non-radiating, intermittent, with waning and waxing intensity, with no clear alleviating or exacerbated factors. She underwent an extensive evaluation in the emergency room with an EKG showing normal sinus rhythm at 66 bpm with a T-wave inversion V1 and no additional ST/T- wave changes noted. A chest x-ray was consistent with COPD. Laboratory evaluation revealed a troponin less than 0.012, AST 44, ALT 23, WBC count 7.3, hemoglobin 13.8, platelets 163, sodium 136, potassium 4.5, BUN 19, creatinine 0.86, and a glucose of 95. The patient is being admitted to the medicine service for further management of chest pain and cardiology evaluation. Troponin was less than 0.0123 and ACS was ruled out. Cardiology was consulted and recommended stress test and echocardiogram. Echocardiogram showed EF 55-60% with moderate concentric LVH. Stress test was performed and was negative. Patient was seen and examined. No acute events overnight. Patient reports no chest pain, shortness breath or palpitations. States that she gets lightheaded only she gets out of bed too quickly. She denies any nausea or vomiting. No dizziness. No fever or chills. Wanting to go home. General: [non toxic], [no distress], [appears at stated age] Derm: [warm], [dry] Head: [atraumatic], [normocephalic], [symmetric] Eyes: [EOMI], [no lid lag], [anicteric sclera] Mouth: [no lip lesion], [mucus membranes moist] Cardiovascular: [S1S2 reg], [no murmur], [positive DP pulse bilateral], Lungs: [CTA bilateral], [no rhonchi, no rales] , [no accessory muscle use] Abdominal: [soft], [ nontender to palpation], [no guarding], [no appreciable organomegaly] Ext: [no gross muscle atrophy], [no edema], [no contractures] Neuro: [no focal neuro deficits] Psych: [Alert], [oriented], [appropriate affect] Chest pain Hypertension Dyslipidemia Elevated ALT Troponins were negative with no EKG changes, ACS was ruled out. Stress is negative. Echocardiogram showing normal EF with moderate diastolic dysfunction. Plans: Follow cardiology in the outpatient setting. Continue aspirin and Lipitor. BP 118/74. Plans: Continue Diltiazem. Plans: Continue Lipitor. [ACS ruled out. Stress is negative. Follow-up cardiology within 1 week. Follow-up PCP within 3 days discharge.] Pertinent Studies: Chest x-ray, echocardiogram, stress test Patient Condition at Discharge: Stable Plan - Discharge Summary Discharge Rx Participant: No New Discharge Prescriptions: Continue Cyanocobalamin [Vitamin B-12] 1,000 mg PO DAILY Atorvastatin Calcium [Lipitor] 10 mg PO HS Folic Acid 1 mg PO DAILY Diltiazem Oral [Cardizem*] 120 mg PO HS Multivit-Min/FA/Lycopen/Lutein [Centrum Silver Tablet] 1 tab PO DAILY Losartan Potassium [Cozaar] 50 mg PO DAILY Calcium Carbonate [Calcium] 400 mg PO HS Aspirin 81 mg PO DAILY Cholecalciferol [Vitamin D3 (25 Mcg = 1000 Iu)] 1,000 unit PO HS Ubidecarenone [Co Q-10] 100 mg PO DAILY Bifidobacterium Infantis [Align] 4 mg PO DAILY Krill Oil 500 mg PO DAILY Discontinued Baclofen [Lioresal] 10 mg PO HS PRN PRN Reason: Muscle Spasm Discharge Medication List Aspirin 81 mg PO DAILY 04/25/15 [History] Atorvastatin Calcium [Lipitor] 10 mg PO HS 04/25/15 [History] Calcium Carbonate [Calcium] 400 mg PO HS 04/25/15 [History] Cholecalciferol [Vitamin D3 (25 Mcg = 1000 Iu)] 1,000 unit PO HS 04/25/15 [History] Cyanocobalamin [Vitamin B-12] 1,000 mg PO DAILY 04/25/15 [History] Diltiazem Oral [Cardizem*] 120 mg PO HS 04/25/15 [History] Folic Acid 1 mg PO DAILY 04/25/15 [History] Losartan Potassium [Cozaar] 50 mg PO DAILY 04/25/15 [History] Multivit-Min/FA/Lycopen/Lutein [Centrum Silver Tablet] 1 tab PO DAILY 04/25/15 [History] Bifidobacterium Infantis [Align] 4 mg PO DAILY 02/12/16 [History] Ubidecarenone [Co Q-10] 100 mg PO DAILY 02/12/16 [History] Krill Oil 500 mg PO DAILY 07/17/18 [History] Follow up Appointment(s)/Referral(s): Nargis Ryan MD [Primary Care Provider] - 1-2 days Eduard Lovelace MD [STAFF PHYSICIAN] - 2 Weeks Activity/Diet/Wound Care/Special Instructions: Diet: Cardiac FU PCP within 3 days. FU Cardiology within 1 week. Take medications as advised. Come back to the ED or call 911 for chest pain, shortness of breath, palpitations or dizziness. Discharge Disposition: HOME SELF-CARE
[2019-06-17] MEDS ORDERED: DILTIAZEM CD 120 MG CAP.ER.24H PO SCH (21:00)
[2019-06-17] MEDS ORDERED: ATORVASTATIN 10 MG TAB PO SCH (21:00)
--- NOTE | 2019-06-18 13:02 | ECHOS ---
Stress Test Results/Findings: Exam Performed: dobutamine stress echo Exam Date: 06/17/19 Reason for Exam: CHEST PAIN Height: 5 ft 4 in Weight: 52.16 kg Protocol: DOBUTAMINE STRESS ECHO Stage: III Duration of Exercise: 6:38 Resting Heart Rate: 65 Resting Blood Pressure: 135/98 Maximum Achieved Heart Rate: 139 Maximum Achieved Blood Pressure: 150/64 85% PMHR: 121 100% PMHR: 142 METS: N/A Technologist Comment: Stress Test Results/Findings: This is a 79-year-old female with history of hypertension, family history of ischemic heart disease and smoking admitted to the hospital with the chest pain. Stress data: Baseline EKG showed sinus rhythm with normal IA interval, QRS duration. Blood pressure at rest is 135/98 with pulse rate of 65. A standard dose of dobutamine was initiated at 10 mics and was titrated to maximum of 30 mics HAV maximum rate of 139 with a blood pressure 132/64. EKGs taken during and after x-ray did not reveal any changes of ischemia. Echo data: Baseline echo images showed normal wall motion and thickening. Exercise echo images with a dobutamine showed augmentation of wall motion and thickening in both low dose and high dose. Final impression: #1. Negative dobutamine stress test #2. Negative dobutamine stress echo MTDD
== END 2019-06-17 14:47 | disposition home or self-care (01) ==
LOC: EC 17:44 → 1SOBS 20:11
PROVIDERS: ADMIT Internal Medicine; ATTEND Internal Medicine
DX: R07.89 Other chest pain (principal); I10 Essential (primary) hypertension; E78.5 Hyperlipidemia, unspecified; R74.0 Nonspecific elevation of levels of transaminase and lactic acid dehydrogenase [LDH]; G89.29 Other chronic pain; M54.9 Dorsalgia, unspecified; I25.10 Atherosclerotic heart disease of native coronary artery without angina pectoris; M19.90 Unspecified osteoarthritis, unspecified site; K57.90 Diverticulosis of intestine, part unspecified, without perforation or abscess without bleeding; J44.9 Chronic obstructive pulmonary disease, unspecified; F17.200 Nicotine dependence, unspecified, uncomplicated; I08.3 Combined rheumatic disorders of mitral, aortic and tricuspid valves; I27.20 Pulmonary hypertension, unspecified; Z87.39 Personal history of other diseases of the musculoskeletal system and connective tissue; Z79.82 Long term (current) use of aspirin; Z79.899 Other long term (current) drug therapy; Z88.5 Allergy status to narcotic agent; Z88.8 Allergy status to other drugs, medicaments and biological substances; Z91.018 Allergy to other foods; Z91.030 Bee allergy status; Z86.69 Personal history of other diseases of the nervous system and sense organs; Z87.2 Personal history of diseases of the skin and subcutaneous tissue; Z86.79 Personal history of other diseases of the circulatory system; Z87.898 Personal history of other specified conditions; Z98.890 Other specified postprocedural states; Z90.49 Acquired absence of other specified parts of digestive tract; Z98.51 Tubal ligation status; Z98.42 Cataract extraction status, left eye; Z91.89 Other specified personal risk factors, not elsewhere classified; Z82.49 Family history of ischemic heart disease and other diseases of the circulatory system; Z81.2 Family history of tobacco abuse and dependence
CPT/HCPCS: 93005 ×2; 99285; 36415; 93306; 93351; 80061; 80053; 83735; 84484 ×2; 85025; 85610; 85730; 71046; G0378 ×2; J1250; J2405

== ENCOUNTER → 2020-02-03 | Outpatient (CLI) | payer MEDICARE, BC ==
--- NOTE | 2020-02-03 22:43 | MR ---
EXAMINATION TYPE: MR brain wo con DATE OF EXAM: 02/03/2020 COMPARISON: None HISTORY: I 67.9 CONTRAST: Performed utilizing 0 mL intravenous Gadavist gadolinium contrast. TECHNIQUE: Multiplanar, multiecho imaging on a 3.0 Kathy magnet is performed through the brain. Stud y is performed within 24 hours of arrival to the hospital. The craniovertebral junction is normal. The pituitary is normal. Diffusion-weighted imaging is performed. No abnormal hyperintensity is present to suggest an acute i ntracranial infarct or acute ischemic change. There is a T2 hyperintense area within the left posterior lateral cerebellum. This has some increased signal on FLAIR images along the medial border. Prior infarct encephalomalacia should be considered. Additional white matter changes are within the left mauricio and in the periventricular white matter. Sca ttered punctate subcortical white matter changes are through the centrum semiovale which are nonspeci fic but could be related to microvascular ischemic change. Ventricles and sulci are prominent for the patient age. IMPRESSIONS: 1. Atrophy with periventricular white matter ischemic changes. 2. 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
== END | disposition home or self-care (01) ==
LOC: RADMRIMAIN 14:41
PROVIDERS: ATTEND Psychiatry & Neurology Neurology
DX: G31.9 Degenerative disease of nervous system, unspecified (principal); I67.82 Cerebral ischemia
CPT/HCPCS: 70551

== ENCOUNTER → 2020-03-21 | Outpatient (CLI) | payer MEDICARE, BC ==
[2020-03-21 21:54] LABS: African American GFR (CKD) 62.5 (60.0-200.0); Carbon Dioxide 29.9 mmol/L (21.6-31.8); Chloride 105 mmol/L (96-109); Glucose 94 mg/dL (70-110); Non-African American GFR(CKD) 53.9 (60.0-200.0); Potassium 4.8 mmol/L (3.5-5.5); Sodium 139 mmol/L (135-145)
[2020-03-21 22:07] LABS: Folate, Serum >24.0 ng/mL
== END | disposition home or self-care (01) ==
LOC: LABWHC1 10:15
PROVIDERS: ATTEND Psychiatry & Neurology Neurology
DX: G30.0 Alzheimer's disease with early onset (principal)
CPT/HCPCS: 36415; 80051; 82565; 82607; 82746; 82947; 84520; 86618